=== PATIENT | male | born 1995 | race Caucasian/White ===

== ENCOUNTER 2018-09-10 14:28 | Emergency (ER) | payer BC ==
[2018-09-10 17:07] VITALS: BP 149/78
--- NOTE | 2018-09-10 17:18 | UC ---
Skin Complaint HPI - HPI Summary HPI Summary: Pt c/o sudden onset of painful erythematous "lump" to mid inner upper left thigh. Pt denies injury or fever. - History of Current Complaint Chief Complaint: [facility] Time Seen by Provider: 09/10/18 17:14 Stated Complaint: SKIN CONCERN Hx Obtained From: Patient Onset/Duration: Sudden Onset, Lasting Days, Still Present Skin Exposure Onset/Duration: Days Ago Onset Severity: Mild Current Severity: Moderate Pain Intensity: 4 Location: Discrete - left medial mid upper thigh Character: Redness, Painful Aggravating Factor(s): Touch Alleviating Factor(s): Nothing Associated Signs & Symptoms: Positive: Tenderness - Allergy/Home Medications Allergies/Adverse Reactions: Allergies Allergy/AdvReac Type Severity Reaction Status Date / Time No Known Allergies Allergy Verified 09/10/18 17:07 PMH/Surg Hx/FS Hx/Imm Hx Previously Healthy: Yes - Surgical History Surgical History: Yes Surgery Procedure, Year, and Place: LEFT RING FINGER TENDON REPAIR - Family History Known Family History: Positive: Cardiac Disease - Social History Occupation: Student Lives: With Family Alcohol Use: Occasionally Substance Use Type: None Smoking Status (MU): Never Smoked Tobacco Have You Smoked in the Last Year: No - Immunization History Vaccination Up to Date: Yes Review of Systems All Other Systems Reviewed And Are Negative: Yes Constitutional: Positive: Negative Skin: Positive: Other - abscess, erythema Eyes: Positive: Negative ENT: Positive: Negative Respiratory: Positive: Negative Cardiovascular: Positive: Negative Gastrointestinal: Positive: Negative Genitourinary: Positive: Negative Motor: Positive: Negative Neurovascular: Positive: Negative Musculoskeletal: Positive: Myalgia - at affected area of left medial mid upper thigh Neurological: Positive: Negative Psychological: Positive: Negative Is Patient Immunocompromised?: No Physical Exam Triage Information Reviewed: Yes Appearance: Well-Appearing Vital Signs: Initial Vital Signs Temp 98.2 F 09/10/18 17:04 Pulse 88 09/10/18 17:04 Resp 16 09/10/18 17:04 BP 149/78 09/10/18 17:04 Pulse Ox 100 09/10/18 17:04 Vital Signs Reviewed: Yes Eye Exam: Normal ENT: Positive: Hearing grossly normal Dental Exam: Normal Neck exam: Normal Respiratory: Positive: No respiratory distress Musculoskeletal Exam: Normal Neurological Exam: Normal Psychological Exam: Normal Skin Exam: Other - nickel size erythematous soft mass in mid, medial inner upper left thigh. ~ 6 cm erythematous area surrounding soft mass. No drainage. Course/Dx - Course Course Of Treatment: I discussed with the pt the need to follow up with a PCP or if symptoms worsen to go directly to the closest ER. Additionally, I spoke t him about taking antibiotics, apply warm moist heat to the are and to allow arrea to open and drain if possible. pt verbalized understanding and agreed to paln of care. - Differential Diagnoses - Skin Complaint Differential Diagnoses: Abscess, MRSA - Diagnoses Provider Diagnosis: Abscess Discharge - Sign-Out/Discharge Documenting (check all that apply): Patient Departure All imaging exams completed and their final reports reviewed: No Studies - Discharge Plan Condition: Stable Disposition: HOME Prescriptions: Sulfamethox/Trimethoprim DS* [Bactrim DS 800/160 TAB*] 1 tab PO Q12H #20 tab Patient Education Materials: Abscess (ED), Warm Compress or Soak (ED) Referrals: [facility] [Outside] - If Needed No Primary Care Phys,NOPCP [Primary Care Provider] - Additional Instructions: If your symptoms do not improve or they worsen to include increase in redness, tenderness, fever, chills and/or red streaking for the affected area, please go directly to the closest emergency room for further evaluation and testing. - Billing Disposition and Condition Condition: STABLE Disposition: Home
== END 2018-09-10 17:27 | disposition home or self-care (01) ==
LOC: UCCORT 14:28
DX: L02.416 Cutaneous abscess of left lower limb (principal)
CPT/HCPCS: 99202; G0463